=== PATIENT | male | born 1990 | race African-American/Black ===

== ENCOUNTER 2017-12-26 20:53 | Emergency (ER) | payer OTHER ==
[~2017-12-26] VITALS: Ht 167.6 cm; Wt 59.0 kg
[2017-12-26] MEDS ORDERED: IBUPROFEN 600600 M1 PO (21:40)
[2017-12-26 21:46] VITALS: BP 126/75
== END 2017-12-26 21:46 | disposition home or self-care (01) ==
LOC: M.ERS 20:53
DX: S62.306A Unspecified fracture of fifth metacarpal bone, right hand, initial encounter for closed fracture (principal); W22.8XXA Striking against or struck by other objects, initial encounter; Y93.89 Activity, other specified; Y92.89 Other specified places as the place of occurrence of the external cause; Y99.8 Other external cause status